=== PATIENT | male | born 1995 | race Caucasian/White ===

== ENCOUNTER 2016-07-09 18:47 | Emergency (ER) | payer OTHER ==
[~2016-07-09] VITALS: Ht 182.9 cm; Wt 72.6 kg
[2016-07-09 18:55] VITALS: TEMP 36.5; Ht 182.9 cm; Wt 72.6 kg
[2016-07-09] MEDS ORDERED: KETOROLAC TROMETHAMINE 30 MG/ML VIAL IV STA (19:05)
[2016-07-09] MEDS ORDERED: ONDANSETRON INJ 2 MG/ML 2 ML VIAL IV STA (19:05)
[2016-07-09] MEDS ORDERED: SODIUM CHLORIDE 0.9% 1000ML 2,000 ML IV STA (19:05)
[2016-07-09 19:20] LABS: BASO % 0.1 %; BASO ABS # 0.01 K/uL (0-0.2); COMPLETE YES; EOS % 0.3 %; HEMATOCRIT 44.2 % (42-52); IG% 0.2 %; LYMPH % 6.7 %; LYMPH ABS # 0.77 K/uL (1.2-3.4); MEAN CELL VOLUME 88.4 fL (80-100); MEAN CORPUSCULAR HEMOGLOBIN 31.2 pg (25-34); MEAN CORPUSCULAR HGB CONC 35.3 g/dl (32-36); MEAN PLATELET VOLUME 8.8 fL (7.4-10.4); MONO % 5.8 %; NEUT % 86.9 %; PLATELET COUNT 242 K/uL (130-400); WHITE BLOOD COUNT 11.44 K/uL (4.8-10.8)
[2016-07-09 19:36] LABS: MANUAL MICROSCOPIC REQUIRED? YES; URINE APPEARANCE CLEAR (CLEAR); URINE BILIRUBIN NEG (NEG); URINE COLOR YELLOW; URINE NITRITE NEG (NEG); URINE PH 7.5 (4.5-7.5); UROBILINOGEN NEG (NEG)
[2016-07-09 19:37] LABS: BUN/CREATININE RATIO 13.6 (10-20); CALCIUM 9.4 mg/dl (8.5-10.1); CREATININE 1.1 mg/dl (0.60-1.40); POTASSIUM 3.8 mmol/L (3.5-5.1)
[2016-07-09 19:41] LABS: REVIEW REQ? NO; SULFASALICYLIC ACID NEG (NEG)
[2016-07-09 19:43] LABS: URINE BACTERIA 1+ (NEG); URINE RBC 0-4 /hpf (0-4); URINE WBC 0 /hpf (0-5)
[2016-07-09] MEDS ORDERED: ONDA4TAB10 SL (21:36)
[2016-07-09] MEDS ORDERED: ONDANSETRON HOME PACK 4MG OD TAB PO ONE (21:45)
[2016-07-09 22:09] VITALS: BP 134/71; PULSE 75; O2SAT 100
--- NOTE | 2016-07-09 23:41 | EMERGENCY ROOM VISIT NOTE ---
History First contact with patient: 19:05 Chief Complaint: VOMITING Stated Complaint: VOMITING,DIARRHEA CONSTANTLY, FATIGUE, NEAR SYNCOP Nursing Triage Summary: n/v/d for 9 days with flu like symptoms. History of Present Illness The patient is a 21 year old male who presents to the Emergency Room with complaints of persistent nausea, vomiting, diarrhea, fatigue and dizziness for the past 9 days. The patient reports that he went on a [place] cruise from [place]16. He then developed cold-like symptoms last Sunday, or they days ago, then quickly developed nausea, vomiting and diarrhea. The patient reports that the diarrhea has been nonstop. He reports that any attempts to drink or eat usually results in vomiting. He does not recall eating or drinking any unusual foods or water while on the cruise. Others who went with him on the cruise did not get sick. The patient has not seen anyone at this point for his symptoms, and rates his overall discomfort an 8 out of 10. Review of Systems HEENT: Denies visual problems, hearing loss, tinnitus. Denies difficulty swallowing or oral lesions. PULMONARY: Denies cough, shortness of breath, sputum production or hemoptysis. CARDIOVASCULAR: Denies chest pain, palpitations, dyspnea on exertion, orthopnea or peripheral edema. GASTROINTESTINAL: See history of present illness. GENITOURINARY: Denies dysuria, frequency, urgency or nocturia. NEUROLOGIC: Denies history of epilepsy, CVA, TIA or chronic headaches. MUSCULOSKELETAL: Denies history of joint tenderness/swelling. SKIN: Denies rashes or lesions. PSYCHIATRIC: Denies history of depression or mental illness. ENDOCRINE: Denies history of diabetes or thyroid disorders. Past Medical/Surgical History Medical Problems: (1) Tobacco use disorder Surgical Problems: (1) No history of previous surgery Family History Unremarkable Social History Smoking Status: Never Smoker Drug Use: none Marital Status: single Occupation Status: [employer] student Current/Historical Medications Scheduled Ondasetron Odt (Zofran Odt), 4 MG SL Q6H Allergies Coded Allergies: No Known Allergies (Unverified , 07/09/16) Physical Exam Vital Signs Date Time Temp Pulse Resp B/P Pulse Ox O2 Delivery O2 Flow Rate FiO2 07/09/16 22:09 75 18 134/71 100 07/09/16 20:50 81 16 142/68 99 Room Air 07/09/16 19:15 Room Air 07/09/16 18:55 36.5 90 18 139/70 100 Room Air Pain Rating (0-10): 0 Physical Exam CONSTITUTIONAL: Healthy and well nourished. Alert and oriented X 3 with positive affect. Patient appears in moderate discomfort from pain and nausea. HEENT: Normocephalic, atraumatic. Pupils equal, round and reactive. Ears and nares are clear. No scleral icterus or conjunctival injection/pallor. OROPHARYNX: Mucous membranes are dry. No tonsillar hypertrophy or exudates. NECK: Full active range of motion without discomfort. No nuchal rigidity. RESPIRATORY: Clear to auscultation bilaterally with no wheezing, crackles, rhonchi or stridor. CARDIOVASCULAR: Regular rate and rhythm with no murmurs, rubs or gallops. GASTROINTESTINAL: Bowel sounds present in all quadrants. She has diffuse and nonfocal tenderness to palpation of the abdomen. Negative McBurney's point tenderness. Negative Duarte sign. No hepatosplenomegaly. Negative CVA tenderness. MUSCULOSKELETAL: Full range of motion of all joints without discomfort. INTEGUMENTARY: No rash or other significant dermatologic conditions noted. HEMATOLOGIC: No ecchymosis or petechiae noted. NEUROLOGIC: Cranial nerves II-XII grossly intact. No focal neurologic deficits noted. Medical Decision & Procedures Laboratory Results 07/09/16 19:09 Red Blood Count 5.00, Mean Corpuscular Volume 88.4, Mean Corpuscular Hemoglobin 31.2, Mean Corpuscular Hemoglobin Concent 35.3, Mean Platelet Volume 8.8, Neutrophils (%) (Auto) 86.9, Lymphocytes (%) (Auto) 6.7, Monocytes (%) (Auto) 5.8, Eosinophils (%) (Auto) 0.3, Basophils (%) (Auto) 0.1, Neutrophils # (Auto) 9.95, Lymphocytes # (Auto) 0.77, Monocytes # (Auto) 0.66, Eosinophils # (Auto) 0.03, Basophils # (Auto) 0.01 07/09/16 19:09 Test 07/09/16 19:09 07/09/16 19:21 White Blood Count 11.44 K/uL (4.8-10.8) Red Blood Count 5.00 M/uL (4.7-6.1) Hemoglobin 15.6 g/dL (14.0-18.0) Hematocrit 44.2 % (42-52) Mean Corpuscular Volume 88.4 fL (80-100) Mean Corpuscular Hemoglobin 31.2 pg (25-34) Mean Corpuscular Hemoglobin Concent 35.3 g/dl (32-36) Platelet Count 242 K/uL (130-400) Mean Platelet Volume 8.8 fL (7.4-10.4) Neutrophils (%) (Auto) 86.9 % Lymphocytes (%) (Auto) 6.7 % Monocytes (%) (Auto) 5.8 % Eosinophils (%) (Auto) 0.3 % Basophils (%) (Auto) 0.1 % Neutrophils # (Auto) 9.95 K/uL (1.4-6.5) Lymphocytes # (Auto) 0.77 K/uL (1.2-3.4) Monocytes # (Auto) 0.66 K/uL (0.11-0.59) Eosinophils # (Auto) 0.03 K/uL (0-0.5) Basophils # (Auto) 0.01 K/uL (0-0.2) RDW Standard Deviation 43.0 fL (36.4-46.3) RDW Coefficient of Variation 13.2 % (11.5-14.5) Immature Granulocyte % (Auto) 0.2 % Immature Granulocyte # (Auto) 0.02 K/uL (0.00-0.02) Urine Color YELLOW Urine Appearance CLEAR (CLEAR) Urine pH 7.5 (4.5-7.5) Urine Specific [place] 1.010 (1.000-1.030) Urine Protein NEG (NEG) Urine Glucose (UA) NEG (NEG) Urine Ketones 1+ (NEG) Urine Occult Blood TRACE (NEG) Urine Nitrite NEG (NEG) Urine Bilirubin NEG (NEG) Urine Urobilinogen NEG (NEG) Urine Leukocyte Esterase NEG (NEG) Urine RBC 0-4 /hpf (0-4) Urine WBC 0 /hpf (0-5) Urine Epithelial Cells 0-5 /lpf (0-5) Urine Bacteria 1+ (NEG) Anion Gap 11.0 mmol/L (3-11) Est Creatinine Clear Calc Drug Dose 109.1 ml/min Estimated GFR () 110.6 Estimated GFR (Non- 95.5 BUN/Creatinine Ratio 13.6 (10-20) Calcium Level 9.4 mg/dl (8.5-10.1) Total Bilirubin 1.0 mg/dl (0.2-1) Direct Bilirubin 0.2 mg/dl (0-0.2) Aspartate Amino Transf (AST/SGOT) 19 U/L (15-37) Alanine Aminotransferase (ALT/SGPT) 26 U/L (12-78) Alkaline Phosphatase 73 U/L (45-117) Total Protein 8.4 gm/dl (6.4-8.2) Albumin 4.9 gm/dl (3.4-5.0) Lipase 95 U/L (73-393) Date/Time Source Procedure Growth Status 07/09/16 19:21 Stool C.difficile Toxin B Gene (PCR) - Final No C. difficile toxin B gene detected Complete The above labs were reviewed. Stool studies shows a negative C. difficile and rotavirus. Normal rotavirus, Giardia and stool cultures are pending. No fecal leukocytes were noted. Otherwise remaining labs are grossly normal with only a mild leukocytosis. LFTs and lipase are normal. Medications Administered Medications (Trade) Dose Ordered Sig/Clarisse Route Start Time Stop Time Status Last Admin Dose Admin Sodium Chloride (Nss 1000ml) 2,000 ml @ 999 mls/hr Q2H1M STAT IV 07/09/16 19:05 07/09/16 21:05 DC 07/09/16 19:20 999 MLS/HR Ondansetron HCl (Zofran Inj) 4 mg NOW STAT IV 07/09/16 19:05 07/09/16 19:07 DC 07/09/16 19:19 4 MG Ketorolac Tromethamine (Toradol Inj) 30 mg NOW STAT IV 07/09/16 19:05 07/09/16 19:07 DC 07/09/16 19:20 30 MG Ondansetron HCl (ZOFRAN ODT 4MG Home Pack) 1 homepack UD ONCE PO 07/09/16 21:45 07/09/16 21:46 DC 07/09/16 21:45 1 HOMEPACK Procedure 1. IV hydration: The patient received a 2 L normal saline bolus 2. IV medications: Toradol 30 mg and Zofran 4 mg IVP ED Course Patient history and physical exam were performed. Nurse's notes were reviewed. Vital signs were reviewed and were normal on initial exam. The patient does not appear in any acute distress. IV access was established, and labs were drawn. The patient was hydrated with normal saline, and received IV medications as discussed in the previous Procedure section. Review of labs shows a mild leukocytosis, otherwise electrolytes, LFTs and lipase are normal. Stool studies at this time are also normal, including C. difficile and rotavirus. Norovirus and stool cultures are pending. No fecal leukocytes were noted on smear. This therefore is not suggestive of a bacterial infection at this time. The patient reported feeling much better, and was tolerating fluids at the time of discharge. The patient was provided a home pack and prescription for Zofran ODT. He was given instructions for a clear liquid diet over the next several days, then slowly advance diet as tolerated. Tylenol as needed for pain. I did encourage him to follow up with [facility] for further management, and to review stool cultures. He was instructed to return to the emergency department for any progressively worsening symptoms, uncontrollable vomiting, developing fever or other significant concerns. The patient was happy with plan of care, voice understanding of all discharge instructions, and denied any significant pain or nausea at the time of discharge. Medical Decision Patient presents to the emergency department with complaint of nausea, vomiting and diarrhea. His symptoms have been ongoing for the past 9 days. The patient did recently embark on a cruise. Stool studies at this time are suggestive of viral etiology. Stool cultures are pending at this time. I do not suspect acute appendicitis or diverticulitis. Laboratory studies also are not suggestive of pancreatitis, hepatitis or cholecystitis. Impression Primary Impression: Gastroenteritis Departure Information Dispostion Home / Self-Care Condition FAIR Prescriptions Ondasetron Odt (ZOFRAN ODT) 4 Mg Tab 4 MG SL Q6H for Nausea, #15 TAB Prov: Jimbo Thompson PA 07/09/16 Referrals [facility] (PCP) Forms HOME CARE DOCUMENTATION FORM, IMPORTANT VISIT INFORMATION Patient Instructions My [facility] Additional Instructions Drink plenty of fluids to remain well-hydrated. Clear liquid diet for 24-48 hrs, then slowly advance diet as tolerated. Zofran ODT every 6 hours as needed to prevent nausea. Tylenol 1000 mg every 6 hrs for any additional relief of pain/fever. Return to the emergency department for uncontrollable vomiting or inability to remain well-hydrated. Suggest follow-up with [facility] in 48-72 hours for recheck.
[2016-07-19 12:20] LABS: NOROVIRUS RNA** TC 19098X DETECTED; O&P GIARDIA AG NOT DETECTED (NOT DETECTED)
--- NOTE | 2016-07-19 17:54 | Pharmacy Progress Note ---
ED Pharmacist Culture FollowUp Date of Service: Jul 19, 2016. ED notified of positive Norovirus serology per lab. This was a positive result from specimen obtained > 1 wk ago. No intervention required at this time. Case discussed with Dr. Ayers.
== END 2016-07-09 22:10 | disposition home or self-care (01) ==
LOC: C.EDB 18:48 → C.EDC 22:10
DX: K52.9 Noninfective gastroenteritis and colitis, unspecified (principal); F17.200 Nicotine dependence, unspecified, uncomplicated